=== PATIENT | female | born 1945 | race Two or more races ===

== ENCOUNTER 2019-08-19 12:10 | Inpatient (IN) | payer MEDICAID, OTHER ==
[~2019-08-19] VITALS: Ht 177.8 cm; Wt 89.9 kg
[2019-08-19] MEDS ORDERED: SODIUM CHLORIDE 0.9% 500 ML IVB ONE (12:16)
[2019-08-19 13:00] LABS: Urine Bacteria MANY /hpf (None Seen); Urine Blood 2+ /uL (Negative); Urine Mucus FEW (None Seen); Urine Specific Gravity 1.016 (1.001-1.035); Urine Sperm PRESENT /hpf (None Seen); Urine WBC 2 /hpf (0 - 5)
[2019-08-19 13:01] LABS: Potassium 4.2 mmol/L (3.5-5.1)
[2019-08-19 13:21] LABS: Albumin 2.1 g/dL (3.4-5.0); BUN/Creatinine Ratio 29.2; Bilirubin, Total 2.1 mg/dL (0.2-1.0); Calcium 8.7 mg/dL (8.5-10.1); Magnesium 2.1 mg/dL (1.6-2.6); Total Protein 7.9 g/dL (6.4-8.2)
[2019-08-19 13:26] LABS: Hematocrit 33.9 % (36.0-46.0); Hemoglobin 10.9 g/dL (12.2-16.2); Mean Corpuscular Hemoglobin 29.7 pg (28.0-32.0); Mean Corpuscular Hgb Conc. 32.1 g/dL (32.0-36.0); Mean Corpuscular Volume 92.8 fL (80.0-100.0); Platelet Count (auto) 270 10^3/uL (140-450); Red Blood Cells 3.65 10^6/uL (4.0-5.20); Red Cell Distribution Width 16.2 % (11.8-14.3); White Blood Cell 4.3 10^3/uL (4.4-10.8)
[2019-08-19 13:29] LABS: Basophils % (manual) 0 (0.0-2.0); Blast Cells 0; Eosinophils % (manual) 0 (0-7); Promyelocytes % 0; Reactive Lymphocytes 0
[2019-08-19] MEDS ORDERED: MORPHINE SULFATE 4 MG/ML SYR/VIAL IV PRN (14:00)
[2019-08-19] MEDS ORDERED: ONDANSETRON HCL 4 MG/2 ML VIAL IV PRN (14:00)
[2019-08-19] MEDS ORDERED: ALUM & MAG HYDROX-SIMETH LIQ(MAALOX) 30 ML PO PRN (14:00)
[2019-08-19] MEDS ORDERED: NITROGLYCERIN 0.4 MG SL TAB SL PRN (14:00)
[2019-08-19] MEDS ORDERED: SODIUM CHLORIDE 0.9% 1,000 ML IV SCH (14:00)
[2019-08-19] MEDS ORDERED: MORPHINE SULF INJ 2 MG/ML SYRINGE 1ML IV PRN (14:00)
[2019-08-19 14:02] LABS: Band Neutrophils % (manual) 25; Lymphocytes % (manual) 5 (10.0-50.0); Metamyelocytes % 3; Monocytes % (manual) 11 (0-12); Myelocytes % 1
[2019-08-19] MEDS ORDERED: LACTATED RINGER S IV ONE (14:15)
[2019-08-19 14:25] LABS: Cholesterol 104 mg/dL (< 200)
[2019-08-19 14:27] LABS: HDL Cholesterol 60 mg/dL (40-59); LDL Cholesterol 23 mg/dL (< 100); Triglycerides 128 mg/dL (< 150)
[2019-08-19] MEDS ORDERED: DEXTROSE (50%) 50ML SYRG IV PRN (14:45)
[2019-08-19 16:26] VITALS: BP 121/69
[2019-08-19] MEDS: InsuLIN REG 1unit/0.01ml Soln (100units/ml) SC SCH ×2 (17:00→22:00)
[2019-08-19] MEDS: ACCU-CHEK COMFORT CURVE STRIP VI SCH ×2 (17:00→23:16)
[2019-08-19] MEDS ORDERED: TRAM50TA2 PO (17:05)
[2019-08-19] MEDS ORDERED: ATOR20TA50 PO (17:05)
[2019-08-19] MEDS ORDERED: DEXA4TAB PO (17:05)
[2019-08-19] MEDS ORDERED: HYDR50TA15 PO (17:05)
[2019-08-19] MEDS ORDERED: METO-158 PO (17:05)
[2019-08-19] MEDS ORDERED: ASPI-231 PO (17:05)
[2019-08-19] MEDS ORDERED: AMLO5TAB15 PO (17:05)
[2019-08-19] MEDS: cefTRIAXone 1GM/50ML D5W 50 ML IV SCH (18:30)
[2019-08-19] MEDS: SODIUM CHLORIDE 0.9% 1,000 ML IV SCH (19:00)
[2019-08-19] MEDS ORDERED: METOPROLOL TARTRATE 1MG/1ML-5ML VIAL IV ONE (19:00)
[2019-08-19] MEDS: LORazepam 0.5 MG TAB PO PRN (20:01)
[2019-08-19] MEDS: METOPROLOL TARTRATE 1MG/1ML-5ML VIAL IV PRN (21:52)
[2019-08-19 21:58] VITALS: BP 113/70
[2019-08-19 23:20] VITALS: BP 92/58
[2019-08-20] VITALS (9 sets, daily range): BP systolic 85–122; BP diastolic 48–75
[2019-08-20 05:34] LABS: Basophils # (auto) 0 10 ^3/uL (0-0.2); Basophils % (auto) 0.5 % (0.0-2.0); Eosinophils # (auto) 0 10 ^3/uL (0-0.8); Eosinophils % (auto) 0.3 % (0.0-7.0); Hematocrit 36.6 % (36.0-46.0); Lymphocytes # (auto) 0.1 10 ^3/uL (0.4-5.4); Lymphocytes % (auto) 3.1 % (10.0-50.0); Mean Corpuscular Hemoglobin 30.2 pg (28.0-32.0); Mean Corpuscular Hgb Conc. 32.9 g/dL (32.0-36.0); Monocytes # (auto) 0.1 10 ^3/uL (0-1.3); Monocytes % (auto) 3.8 % (0.0-12.0); Neutrophils # (auto) 3.2 10 ^3/uL (1.6-8.6); Neutrophils % (auto) 92.3 % (37.0-80.0); Nucleated Red Blood Cells % 0.3 %; Platelet Count (auto) 215 10^3/uL (140-450); Red Blood Cells 3.98 10^6/uL (4.0-5.20); Red Cell Distribution Width 16.4 % (11.8-14.3); White Blood Cell 3.5 10^3/uL (4.4-10.8)
[2019-08-20] MEDS: SODIUM CHLORIDE 0.9% 1,000 ML IV SCH ×4 (05:50→20:46)
[2019-08-20 05:52] LABS: Albumin 1.3 g/dL (3.4-5.0); INR 1.66 (0.9-1.15); Partial Thromboplastin Time 47.3 sec (23.64-32.05); Potassium 3.9 mmol/L (3.5-5.1)
[2019-08-20 05:56] LABS: BUN/Creatinine Ratio 42.4; Bilirubin, Total 2.6 mg/dL (0.2-1.0); Phosphorus 3.1 mg/dL (2.5-4.90); Total Protein 6.2 g/dL (6.4-8.2)
[2019-08-20] MEDS: LORazepam 0.5 MG TAB PO PRN (06:14)
[2019-08-20] MEDS: ACCU-CHEK COMFORT CURVE STRIP VI SCH ×4 (06:20→21:20)
[2019-08-20] MEDS: InsuLIN REG 1unit/0.01ml Soln (100units/ml) SC SCH ×4 (06:20→21:31)
[2019-08-20] MEDS: DOCUSATE SOD 100 MG CAP PO PRN (06:36)
[2019-08-20] MEDS: HYDROcodone-ACET 5/325MG TAB PO PRN ×2 (06:37→20:04)
[2019-08-20] MEDS: cefTRIAXone 1GM/50ML D5W 50 ML IV SCH (08:47)
[2019-08-20] MEDS: ENOXAPARIN SOD 40 MG/0.4 ML SYRINGE SC SCH (10:26)
[2019-08-20] MEDS: METOPROLOL TARTRATE 1MG/1ML-5ML VIAL IV PRN (10:38)
[2019-08-20] MEDS ORDERED: ALBUMIN 5% 500 ML IV ONE (11:00)
[2019-08-20] MEDS ORDERED: SODIUM CHLORIDE 0.9% 500 ML IV ONE (17:00)
[2019-08-20] MEDS: DexAMETHasone SOD PHOS 4 MG/1ML SDV INJ IV SCH (21:16)
[2019-08-20] MEDS: MORPHINE SULF INJ 2 MG/ML SYRINGE 1ML IV PRN (22:35)
[2019-08-21] MEDS: SODIUM CHLORIDE 0.9% 1,000 ML IV SCH ×4 (02:36→23:01)
[2019-08-21 05:02] VITALS: BP 113/62
[2019-08-21] MEDS: DexAMETHasone SOD PHOS 4 MG/1ML SDV INJ IV SCH ×3 (05:21→22:48)
[2019-08-21] MEDS: HYDROcodone-ACET 5/325MG TAB PO PRN ×4 (05:54→22:49)
[2019-08-21] MEDS: LORazepam 0.5 MG TAB PO PRN (06:01)
[2019-08-21] MEDS ORDERED: METOPROLOL TARTRATE 25 MG TAB PO PRN (06:15)
[2019-08-21] MEDS: ACCU-CHEK COMFORT CURVE STRIP VI SCH ×4 (06:28→22:49)
[2019-08-21] MEDS: InsuLIN REG 1unit/0.01ml Soln (100units/ml) SC SCH ×3 (06:29→22:50)
[2019-08-21 06:58] LABS: Albumin 1.2 g/dL (3.4-5.0); Calcium 8.3 mg/dL (8.5-10.1); Hematocrit 31.4 % (36.0-46.0); Hemoglobin 10.3 g/dL (12.2-16.2); Mean Corpuscular Hemoglobin 30.3 pg (28.0-32.0); Mean Corpuscular Hgb Conc. 32.6 g/dL (32.0-36.0); Mean Corpuscular Volume 92.9 fL (80.0-100.0); Platelet Count (auto) 188 10^3/uL (140-450); Potassium 3.6 mmol/L (3.5-5.1); Red Blood Cells 3.39 10^6/uL (4.0-5.20); Red Cell Distribution Width 16.7 % (11.8-14.3)
[2019-08-21 07:04] LABS: Bilirubin, Total 2.4 mg/dL (0.2-1.0); Total Protein 5.7 g/dL (6.4-8.2)
[2019-08-21 07:05] LABS: Basophils % (manual) 0 (0.0-2.0); Blast Cells 0; Eosinophils % (manual) 0 (0-7); Myelocytes % 0; Promyelocytes % 0
[2019-08-21 07:29] LABS: Band Neutrophils % (manual) 5; Lymphocytes % (manual) 3 (10.0-50.0); Metamyelocytes % 3; Monocytes % (manual) 2 (0-12); Reactive Lymphocytes 1
[2019-08-21 08:00] VITALS: BP 96/64
[2019-08-21 09:00] VITALS: BP 104/43
[2019-08-21] MEDS: ENOXAPARIN SOD 40 MG/0.4 ML SYRINGE SC SCH (10:00)
[2019-08-21] MEDS: cefTRIAXone 1GM/50ML D5W 50 ML IV SCH (10:01)
[2019-08-21] MEDS ORDERED: AMIODARONE HCL 200 MG TAB PO SCH (12:44)
[2019-08-21] MEDS ORDERED: DIGOXIN (250MCG/ML) 2 ML AMPULE IV ONE ×2 (12:45→15:15)
[2019-08-21 13:00] VITALS: BP 96/67
[2019-08-21] MEDS ORDERED: POTASSIUM CHL 20 Meq TABLET PO ONE (13:00)
[2019-08-21] MEDS ORDERED: DEXTROSE (50%) 50ML SYRG IV PRN (13:00)
[2019-08-21] MEDS: AMIODARONE HCL 200 MG TAB PO SCH ×2 (13:49→22:48)
[2019-08-21 17:00] VITALS: BP 115/70
[2019-08-21 22:24] VITALS: BP 104/59
[2019-08-22] MEDS: HYDROcodone-ACET 5/325MG TAB PO PRN ×3 (05:02→16:48)
[2019-08-22 05:30] VITALS: BP 136/75
[2019-08-22] MEDS: DexAMETHasone SOD PHOS 4 MG/1ML SDV INJ IV SCH ×3 (05:55→22:26)
[2019-08-22 06:36] LABS: Basophils % (manual) 0 (0.0-2.0); Blast Cells 0; Eosinophils % (manual) 0 (0-7); Hematocrit 31.9 % (36.0-46.0); Hemoglobin 10.4 g/dL (12.2-16.2); Mean Corpuscular Hemoglobin 30.3 pg (28.0-32.0); Mean Corpuscular Hgb Conc. 32.6 g/dL (32.0-36.0); Metamyelocytes % 0; Monocytes % (manual) 0 (0-12); Myelocytes % 0; Platelet Count (auto) 185 10^3/uL (140-450); Promyelocytes % 0; Reactive Lymphocytes 0; Red Blood Cells 3.43 10^6/uL (4.0-5.20)
[2019-08-22] MEDS: InsuLIN REG 1unit/0.01ml Soln (100units/ml) SC SCH ×4 (06:38→22:27)
[2019-08-22] MEDS: ACCU-CHEK COMFORT CURVE STRIP VI SCH ×4 (06:38→22:26)
[2019-08-22 06:51] LABS: BUN/Creatinine Ratio 65.4
[2019-08-22 07:14] LABS: Band Neutrophils % (manual) 5; Lymphocytes % (manual) 1 (10.0-50.0)
[2019-08-22 08:00] VITALS: BP 126/74
[2019-08-22 09:00] VITALS: BP 126/74
[2019-08-22 10:11] LABS: Immunoglobulin G, Serum 168 mg/dL (586-1602)
[2019-08-22] MEDS: cefTRIAXone 1GM/50ML D5W 50 ML IV SCH (10:22)
[2019-08-22] MEDS: AMIODARONE HCL 200 MG TAB PO SCH ×2 (10:22→22:26)
[2019-08-22] MEDS: ENOXAPARIN SOD 40 MG/0.4 ML SYRINGE SC SCH (10:23)
[2019-08-22] MEDS: SODIUM CHLORIDE 0.9% 1,000 ML IV SCH ×2 (12:03→13:00)
[2019-08-22 13:00] VITALS: BP 126/71
[2019-08-22 17:00] VITALS: BP 144/76
[2019-08-22] MEDS: MORPHINE SULF INJ 2 MG/ML SYRINGE 1ML IV PRN (20:01)
[2019-08-22 21:57] VITALS: BP 134/76
[2019-08-23] MEDS: MORPHINE SULF INJ 2 MG/ML SYRINGE 1ML IV PRN ×3 (01:18→23:55)
[2019-08-23 01:59] VITALS: BP 140/80
[2019-08-23] MEDS: LORazepam 0.5 MG TAB PO PRN (02:49)
[2019-08-23] MEDS: SODIUM CHLORIDE 0.9% 1,000 ML IV SCH ×2 (02:57→14:53)
[2019-08-23 05:04] VITALS: BP 142/82
[2019-08-23] MEDS: DexAMETHasone SOD PHOS 4 MG/1ML SDV INJ IV SCH ×3 (05:41→22:00)
[2019-08-23 06:35] LABS: Calcium 9.1 mg/dL (8.5-10.1); Magnesium 1.9 mg/dL (1.6-2.6); Potassium 4.6 mmol/L (3.5-5.1)
[2019-08-23 06:40] LABS: BUN/Creatinine Ratio 60.7
[2019-08-23] MEDS: ACCU-CHEK COMFORT CURVE STRIP VI SCH ×4 (06:44→22:01)
[2019-08-23] MEDS: InsuLIN REG 1unit/0.01ml Soln (100units/ml) SC SCH ×4 (06:49→22:15)
[2019-08-23 08:14] LABS: Folate (Folic Acid) 4.33 ng/mL (5.38-24)
[2019-08-23 09:00] VITALS: BP 138/67
[2019-08-23] MEDS: AMIODARONE HCL 200 MG TAB PO SCH ×2 (09:20→22:00)
[2019-08-23] MEDS: cefTRIAXone 1GM/50ML D5W 50 ML IV SCH (09:20)
[2019-08-23] MEDS: ENOXAPARIN SOD 40 MG/0.4 ML SYRINGE SC SCH (09:21)
[2019-08-23] MEDS: ACYCLOVIR 400 MG TAB PO SCH ×4 (09:40→22:00)
[2019-08-23] MEDS: MORPHINE SULF 30 mg ER tab PO SCH ×2 (09:40→22:00)
[2019-08-23] MEDS ORDERED: MAGNESIUM SULFATE 1GM/100ML 100 ML IV ONE (12:30)
[2019-08-23 13:00] VITALS: BP 128/60
[2019-08-23 17:00] VITALS: BP 121/64
[2019-08-23] MEDS: HYDROcodone-ACET 7.5/325MG TAB PO PRN (20:06)
[2019-08-23 22:00] VITALS: BP 139/80
[2019-08-24 04:54] VITALS: BP 132/66
[2019-08-24] MEDS: DexAMETHasone SOD PHOS 4 MG/1ML SDV INJ IV SCH ×3 (05:14→21:16)
[2019-08-24] MEDS: ACCU-CHEK COMFORT CURVE STRIP VI SCH ×4 (05:15→21:58)
[2019-08-24] MEDS: ACYCLOVIR 400 MG TAB PO SCH ×5 (05:15→22:07)
[2019-08-24] MEDS: MORPHINE SULF INJ 2 MG/ML SYRINGE 1ML IV PRN ×2 (05:45→20:18)
[2019-08-24] MEDS: SODIUM CHLORIDE 0.9% 1,000 ML IV SCH (06:14)
[2019-08-24] MEDS: InsuLIN REG 1unit/0.01ml Soln (100units/ml) SC SCH ×4 (06:15→21:58)
[2019-08-24 08:00] VITALS: BP 136/90
[2019-08-24 09:00] VITALS: BP 136/90
[2019-08-24] MEDS: cefTRIAXone 1GM/50ML D5W 50 ML IV SCH (10:19)
[2019-08-24] MEDS: AMIODARONE HCL 200 MG TAB PO SCH ×2 (10:20→21:18)
[2019-08-24] MEDS: MORPHINE SULF 30 mg ER tab PO SCH ×2 (10:20→21:17)
[2019-08-24] MEDS: DOCUSATE SOD 100 MG CAP PO PRN (10:20)
[2019-08-24] MEDS: ENOXAPARIN SOD 40 MG/0.4 ML SYRINGE SC SCH (10:20)
[2019-08-24] MEDS: LORazepam 0.5 MG TAB PO PRN (11:19)
[2019-08-24] MEDS: FOLIC ACID 1 MG in D5W 5% 50 ML IV SCH (12:43)
[2019-08-24 13:00] VITALS: BP 144/89
[2019-08-24] MEDS: HYDROcodone-ACET 7.5/325MG TAB PO PRN (15:26)
[2019-08-24 17:00] VITALS: BP 141/81
[2019-08-24 22:00] VITALS: BP 132/81
[2019-08-25] MEDS: HYDROcodone-ACET 7.5/325MG TAB PO PRN ×2 (00:23→22:32)
[2019-08-25 05:00] VITALS: BP 142/83
[2019-08-25] MEDS: DexAMETHasone SOD PHOS 4 MG/1ML SDV INJ IV SCH (05:51)
[2019-08-25] MEDS: ACYCLOVIR 400 MG TAB PO SCH ×5 (05:52→22:31)
[2019-08-25] MEDS: InsuLIN REG 1unit/0.01ml Soln (100units/ml) SC SCH ×4 (06:31→22:30)
[2019-08-25] MEDS: ACCU-CHEK COMFORT CURVE STRIP VI SCH ×4 (06:31→23:46)
[2019-08-25 09:00] VITALS: BP_SYST 148; BP_SYST 170; BP_DIAS 73; BP_DIAS 84
[2019-08-25] MEDS: ENOXAPARIN SOD 40 MG/0.4 ML SYRINGE SC SCH (09:06)
[2019-08-25] MEDS: MORPHINE SULF 30 mg ER tab PO SCH ×3 (09:07→15:43)
[2019-08-25] MEDS: AMIODARONE HCL 200 MG TAB PO SCH ×2 (09:07→22:30)
[2019-08-25] MEDS: FOLIC ACID 1 MG in D5W 5% 50 ML IV SCH (10:42)
[2019-08-25] MEDS ORDERED: HYDROcodone-ACET 10/325MG TAB PO PRN (12:45)
[2019-08-25] MEDS ORDERED: traMADol HCL 50 MG TAB PO PRN (12:45)
[2019-08-25 13:00] VITALS: BP 154/87
[2019-08-25 17:00] VITALS: BP 155/81
[2019-08-25 22:00] VITALS: BP 160/93
[2019-08-25] MEDS: METOPROLOL TARTRATE 25 MG TAB PO SCH (22:31)
[2019-08-25] MEDS: DexAMETHasone 4 MG TAB PO SCH (22:31)
[2019-08-26 05:00] VITALS: BP 161/90
[2019-08-26] MEDS: MORPHINE SULF 30 mg ER tab PO SCH (05:11)
[2019-08-26] MEDS: ACYCLOVIR 400 MG TAB PO SCH ×2 (06:24→10:44)
[2019-08-26] MEDS: InsuLIN REG 1unit/0.01ml Soln (100units/ml) SC SCH ×2 (06:24→11:54)
[2019-08-26] MEDS: ACCU-CHEK COMFORT CURVE STRIP VI SCH ×2 (06:25→11:54)
[2019-08-26 07:57] VITALS: BP 130/66
[2019-08-26] MEDS: HYDROcodone-ACET 7.5/325MG TAB PO PRN (08:46)
[2019-08-26 09:00] VITALS: BP 130/66
[2019-08-26] MEDS ORDERED: FOLIC ACID 1 MG TAB PO SCH (10:00)
[2019-08-26] MEDS ORDERED: amLODIPine BESYLATE 5 MG TAB PO ONE (10:15)
[2019-08-26] MEDS: DexAMETHasone 4 MG TAB PO SCH ×2 (10:42→10:44)
[2019-08-26] MEDS: METOPROLOL TARTRATE 25 MG TAB PO SCH ×2 (10:42→10:45)
[2019-08-26] MEDS: ENOXAPARIN SOD 40 MG/0.4 ML SYRINGE SC SCH (10:44)
[2019-08-26] MEDS: AMIODARONE HCL 200 MG TAB PO SCH (10:45)
[2019-08-26] MEDS ORDERED: DEX4T PO (12:39)
[2019-08-26] MEDS ORDERED: DOCU100C8 PO (12:39)
[2019-08-26] MEDS ORDERED: ACYC-161 PO (12:39)
[2019-08-26] MEDS ORDERED: FOLI1TAB6 PO (12:39)
[2019-08-26 13:00] VITALS: BP 124/80
[2019-08-26 13:07] VITALS: BP 130/66
[2019-08-27] MEDS ORDERED: amLODIPine BESYLATE 5 MG TAB PO SCH (10:00)
== END 2019-08-26 15:57 | disposition home or self-care (01) | DRG 40 ==
LOC: EDBD 12:10 → ER 12:10 → TELE 12:11 → TELE-CENTR 15:14 → TELE-WESTW 08-25 12:32
PROVIDERS: ADMIT Hospitalist; ATTEND Internal Medicine
DX: G95.20 Unspecified cord compression (principal); E43 Unspecified severe protein-calorie malnutrition; G93.41 Metabolic encephalopathy; N17.9 Acute kidney failure, unspecified; C90.00 Multiple myeloma not having achieved remission; D89.2 Hypergammaglobulinemia, unspecified; C41.2 Malignant neoplasm of vertebral column; R33.9 Retention of urine, unspecified; E11.22 Type 2 diabetes mellitus with diabetic chronic kidney disease; I95.9 Hypotension, unspecified; I47.1 Supraventricular tachycardia; D63.8 Anemia in other chronic diseases classified elsewhere; N13.9 Obstructive and reflux uropathy, unspecified; E86.0 Dehydration; N18.9 Chronic kidney disease, unspecified; E78.5 Hyperlipidemia, unspecified; F17.200 Nicotine dependence, unspecified, uncomplicated; N31.2 Flaccid neuropathic bladder, not elsewhere classified; I13.10 Hypertensive heart and chronic kidney disease without heart failure, with stage 1 through stage 4 chronic kidney disease, or unspecified chronic kidney disease; Z88.8 Allergy status to other drugs, medicaments and biological substances; Z82.49 Family history of ischemic heart disease and other diseases of the circulatory system; Z79.899 Other long term (current) drug therapy; Z79.82 Long term (current) use of aspirin; Z90.710 Acquired absence of both cervix and uterus; B02.9 Zoster without complications; Z68.26 Body mass index [BMI] 26.0-26.9, adult
CPT/HCPCS: 36415; 70551; 72192; 74176; 80048; 80053; 80061; 81001; 82607; 82746; 82784; 82962; 83036; 83690; 83735; 83883; 84100; 84155; 84165; 84443; 85007; 85025; 85027; 85610; 85730; 86334; 86335; 87086; 92610; 93005; 93306; 93970; 97110; 97163; 97530; G0378; J0696; J1100; J1815; J7060

== ENCOUNTER → 2019-08-27 | Emergency (ER) | payer MEDICAID, OTHER ==
[~2019-08-27] VITALS: Ht 160 cm; Wt 72.6 kg
[~2019-08-27] MED LIST: ACYC-161 PO; AMLO5TAB15 PO; ASPI-231 PO; DEX4T PO; DEXA4TAB PO; DOCU100C8 PO; FOLI1TAB6 PO; HYDR50TA15 PO; METO-158 PO; TRAM50TA2 PO
[2019-08-27 21:23] LABS: Basophils # (auto) 0 10 ^3/uL (0-0.2); Basophils % (auto) 0.5 % (0.0-2.0); Eosinophils # (auto) 0 10 ^3/uL (0-0.8); Hematocrit 32.8 % (36.0-46.0); Hemoglobin 10.8 g/dL (12.2-16.2); Lymphocytes # (auto) 0.1 10 ^3/uL (0.4-5.4); Lymphocytes % (auto) 1.3 % (10.0-50.0); Mean Corpuscular Hemoglobin 30.5 pg (28.0-32.0); Mean Corpuscular Hgb Conc. 32.9 g/dL (32.0-36.0); Mean Corpuscular Volume 92.8 fL (80.0-100.0); Monocytes # (auto) 0 10 ^3/uL (0-1.3); Monocytes % (auto) 0.6 % (0.0-12.0); Neutrophils # (auto) 8.3 10 ^3/uL (1.6-8.6); Neutrophils % (auto) 97.6 % (37.0-80.0); Nucleated Red Blood Cells % 0.3 %; Platelet Count (auto) 178 10^3/uL (140-450); Red Blood Cells 3.53 10^6/uL (4.0-5.20); Red Cell Distribution Width 17.2 % (11.8-14.3); White Blood Cell 8.5 10^3/uL (4.4-10.8)
[2019-08-27 21:41] LABS: Alanine Aminotransferase 29 U/L (13-56); Albumin 1.4 g/dL (3.4-5.0); Anion Gap 6 (5-15); Aspartate Aminotransferase 14 U/L (15-37); Blood Urea Nitrogen 22 mg/dL (7-18); Calcium 7.7 mg/dL (8.5-10.1); Carbon Dioxide 25 mmol/L (21-32); Chloride 105 mmol/L (98-107); GFR African American 156 mL/min; GFR Non-African American 129 mL/min; Glucose 248 mg/dL (74-106); Magnesium 1.7 mg/dL (1.6-2.6); Potassium 4.2 mmol/L (3.5-5.1); Sodium 136 mmol/L (136-145)
[2019-08-27 21:42] LABS: INR 1.13 (0.9-1.15); Partial Thromboplastin Time 33.3 sec (23.64-32.05)
[2019-08-27 21:46] LABS: Alkaline Phosphatase 236 U/L (45-117); Bilirubin, Total 0.9 mg/dL (0.2-1.0); Total Protein 6.2 g/dL (6.4-8.2)
[2019-08-27 22:06] VITALS: BP 125/77
== END | disposition home or self-care (01) ==
LOC: EDBD 20:04 → EDUNIT# 20:07 → ER 20:07
DX: R33.9 Retention of urine, unspecified (principal); M79.89 Other specified soft tissue disorders
CPT/HCPCS: 36415; 71045; 80053; 83735; 83880; 84484; 85025; 85610; 85730

== ENCOUNTER 2019-09-14 19:15 | Inpatient (IN) | payer MEDICAID ==
[~2019-09-14] VITALS: Ht 175.3 cm; Wt 81.3 kg
[2019-09-14 20:34] LABS: Basophils # (auto) 0 10 ^3/uL (0-0.2); Eosinophils # (auto) 0 10 ^3/uL (0-0.8); Hematocrit 32.1 % (36.0-46.0); Hemoglobin 10.2 g/dL (12.2-16.2); Lymphocytes # (auto) 0.1 10 ^3/uL (0.4-5.4); Lymphocytes % (auto) 1.9 % (10.0-50.0); Mean Corpuscular Hemoglobin 31.1 pg (28.0-32.0); Mean Corpuscular Hgb Conc. 31.7 g/dL (32.0-36.0); Mean Corpuscular Volume 98.4 fL (80.0-100.0); Monocytes # (auto) 0.1 10 ^3/uL (0-1.3); Monocytes % (auto) 1.2 % (0.0-12.0); Neutrophils % (auto) 96.9 % (37.0-80.0); Nucleated Red Blood Cells % 2.1 %; Platelet Count (auto) 79 10^3/uL (140-450); Red Blood Cells 3.26 10^6/uL (4.0-5.20); White Blood Cell 5.1 10^3/uL (4.4-10.8)
[2019-09-14 20:49] LABS: Red Cell Distribution Width 20.1 % (11.8-14.3)
[2019-09-14 20:52] LABS: Albumin 1.9 g/dL (3.4-5.0); BUN/Creatinine Ratio 68.1; Calcium 8.3 mg/dL (8.5-10.1); Potassium 4.3 mmol/L (3.5-5.1)
[2019-09-14 20:55] LABS: Bilirubin, Total 0.6 mg/dL (0.2-1.0); Total Protein 5.5 g/dL (6.4-8.2)
[2019-09-14 20:57] LABS: Lactic Acid w/Reflex 2.6 mmol/L (0.4-2.0)
[2019-09-14] MEDS ORDERED: InsuLIN REG 1unit/0.01ml Soln (100units/ml) IV ONE (21:00)
[2019-09-14] MEDS ORDERED: SODIUM CHLORIDE 0.9% 1,000 ML IV ONE (21:00)
[2019-09-14 21:27] LABS: INR 1.24 (0.9-1.15); Partial Thromboplastin Time 27.3 sec (23.64-32.05)
[2019-09-14 22:28] LABS: Urine Bacteria MANY /hpf (None Seen); Urine Blood 1+ /uL (Negative); Urine Mucus FEW (None Seen); Urine Specific Gravity 1.019 (1.001-1.035); Urine WBC 459 /hpf (0 - 5); Urine WBC Clumps PRESENT /hpf (None Seen)
[2019-09-14] MEDS ORDERED: cefTRIAXone 1GM/50ML D5W 50 ML IV ONE (23:30)
[2019-09-15] MEDS ORDERED: TEMAZEPAM 15 MG CAP PO PRN (02:30)
[2019-09-15] MEDS ORDERED: DOCUSATE SOD 100 MG CAP PO PRN (02:30)
[2019-09-15] MEDS ORDERED: DEXTROSE (50%) 50ML SYRG IV PRN (02:30)
[2019-09-15] MEDS ORDERED: ACETAMINOPHEN 325 MG TAB PO PRN (02:30)
[2019-09-15] MEDS ORDERED: IOHEXOL 350 MG/ML 100ML IJ ONE ×2 (02:33→02:57)
[2019-09-15] MEDS ORDERED: MORPHINE SULF INJ 2 MG/ML SYRINGE 1ML IV PRN (03:15)
[2019-09-15] MEDS ORDERED: NITROGLYCERIN 0.4 MG SL TAB SL PRN (03:15)
[2019-09-15 05:28] VITALS: BP 107/69
[2019-09-15] MEDS: SOD CHL 0.45% 1,000 ML IV SCH ×2 (06:26→16:29)
[2019-09-15] MEDS: ACCU-CHEK COMFORT CURVE STRIP VI SCH ×4 (06:30→23:20)
[2019-09-15] MEDS: InsuLIN REG 1unit/0.01ml Soln (100units/ml) SC SCH ×4 (06:33→23:20)
[2019-09-15] MEDS ORDERED: GABA100C9 PO (07:12)
[2019-09-15] MEDS ORDERED: HYDR-531 PO (08:05)
[2019-09-15] MEDS ORDERED: MORP30TA PO (08:06)
[2019-09-15] MEDS: cefTRIAXone 1GM/50ML D5W 50 ML IV SCH (08:53)
[2019-09-15 09:04] VITALS: BP 108/69
[2019-09-15] MEDS: FAMOTIDINE 20 MG TAB PO SCH ×2 (10:00→10:28)
[2019-09-15] MEDS: ASPirin 81 mg TAB PO SCH ×2 (10:00→10:26)
[2019-09-15] MEDS: METOPROLOL TARTRATE 25 MG TAB PO SCH ×2 (10:00→10:27)
[2019-09-15] MEDS: hydrALAZINE HCL 25 MG TAB PO SCH ×2 (10:00→10:27)
[2019-09-15] MEDS: ENOXAPARIN SOD 40 MG/0.4 ML SYRINGE SC SCH (10:28)
[2019-09-15 13:00] VITALS: BP 104/66
[2019-09-15] MEDS ORDERED: hydrALAZINE HCL 20 MG/ML VL IV PRN (14:30)
[2019-09-15] MEDS ORDERED: metroNIDAZOLE 500MG/100ML 100 ML IV ONE (14:45)
[2019-09-15 15:35] LABS: Platelet Count (auto) 59 10^3/uL (140-450)
[2019-09-15 15:36] LABS: Hematocrit 31.1 % (36.0-46.0); Hemoglobin 9.8 g/dL (12.2-16.2); Mean Corpuscular Hemoglobin 30.8 pg (28.0-32.0); Mean Corpuscular Hgb Conc. 31.4 g/dL (32.0-36.0); Mean Corpuscular Volume 98.1 fL (80.0-100.0); Red Blood Cells 3.17 10^6/uL (4.0-5.20); Red Cell Distribution Width 19.6 % (11.8-14.3)
[2019-09-15 15:41] LABS: Basophils % (manual) 0 (0.0-2.0); Blast Cells 0; Eosinophils % (manual) 0 (0-7); Myelocytes % 0; Promyelocytes % 0; Reactive Lymphocytes 0
[2019-09-15 16:02] LABS: Band Neutrophils % (manual) 7; Lymphocytes % (manual) 3 (10.0-50.0); Metamyelocytes % 1; Monocytes % (manual) 1 (0-12)
[2019-09-15 16:20] VITALS: BP 109/68
[2019-09-15 21:59] VITALS: BP 122/82
[2019-09-15] MEDS ORDERED: DexAMETHasone SOD PHOS 4 MG/1ML SDV INJ IV SCH (22:00)
[2019-09-15] MEDS: metroNIDAZOLE 500MG/100ML 100 ML IV SCH (22:06)
[2019-09-15] MEDS: MORPHINE SULF INJ 2 MG/ML SYRINGE 1ML IV PRN (23:23)
[2019-09-16 05:02] VITALS: BP 120/73
[2019-09-16] MEDS: SOD CHL 0.45% 1,000 ML IV SCH (05:15)
[2019-09-16] MEDS: metroNIDAZOLE 500MG/100ML 100 ML IV SCH ×3 (05:16→21:55)
[2019-09-16] MEDS: ACCU-CHEK COMFORT CURVE STRIP VI SCH ×3 (05:16→17:08)
[2019-09-16] MEDS: InsuLIN REG 1unit/0.01ml Soln (100units/ml) SC SCH ×3 (05:16→17:53)
[2019-09-16 06:31] LABS: Hemoglobin 9.9 g/dL (12.2-16.2)
[2019-09-16 06:33] LABS: Hematocrit 30.8 % (36.0-46.0); Mean Corpuscular Hemoglobin 31.3 pg (28.0-32.0); Mean Corpuscular Hgb Conc. 32.2 g/dL (32.0-36.0); Mean Corpuscular Volume 97.2 fL (80.0-100.0); Platelet Count (auto) 56 10^3/uL (140-450); Red Blood Cells 3.16 10^6/uL (4.0-5.20); Red Cell Distribution Width 19.5 % (11.8-14.3); White Blood Cell 3.8 10^3/uL (4.4-10.8)
[2019-09-16 06:45] LABS: Basophils % (manual) 0 (0.0-2.0); Blast Cells 0; Eosinophils % (manual) 0 (0-7); Promyelocytes % 0; Reactive Lymphocytes 0
[2019-09-16 06:50] LABS: Albumin 1.6 g/dL (3.4-5.0); Calcium 8.1 mg/dL (8.5-10.1); Magnesium 2.4 mg/dL (1.6-2.6); Potassium 3.5 mmol/L (3.5-5.1)
[2019-09-16 06:56] LABS: BUN/Creatinine Ratio 82.8; Bilirubin, Total 0.7 mg/dL (0.2-1.0); Total Protein 4.9 g/dL (6.4-8.2)
[2019-09-16 07:04] LABS: Lactic Acid w/Reflex 2.6 mmol/L (0.4-2.0)
[2019-09-16 07:29] LABS: Band Neutrophils % (manual) 14; Lymphocytes % (manual) 1 (10.0-50.0); Metamyelocytes % 1; Monocytes % (manual) 4 (0-12); Myelocytes % 1
[2019-09-16 09:00] VITALS: BP 118/66
[2019-09-16] MEDS: cefTRIAXone 1GM/50ML D5W 50 ML IV SCH (09:22)
[2019-09-16] MEDS ORDERED: ASPirin 81 mg TAB PO SCH (10:00)
[2019-09-16] MEDS: PANTOPRAZOLE 40 MG/10 ML VIAL INJ IV SCH (10:38)
[2019-09-16] MEDS: DexAMETHasone SOD PHOS 4 MG/1ML SDV INJ IV SCH ×2 (10:38→21:54)
[2019-09-16] MEDS: ENOXAPARIN SOD 40 MG/0.4 ML SYRINGE SC SCH (10:39)
[2019-09-16] MEDS ORDERED: METOPROLOL TARTRATE 1MG/1ML-5ML VIAL IV PRN (11:15)
[2019-09-16 13:00] VITALS: BP 127/80
[2019-09-16] MEDS: MORPHINE SULF INJ 2 MG/ML SYRINGE 1ML IV PRN (13:39)
[2019-09-16 17:00] VITALS: BP 132/82
[2019-09-16] MEDS: POTASSIUM CHLORIDE 20 MEQ in D5W 5% 1,000 ML IV SCH (17:08)
[2019-09-17] MEDS: ACCU-CHEK COMFORT CURVE STRIP VI SCH ×4 (00:25→17:16)
[2019-09-17] MEDS: InsuLIN REG 1unit/0.01ml Soln (100units/ml) SC SCH ×4 (00:29→17:28)
[2019-09-17] MEDS: POTASSIUM CHLORIDE 20 MEQ in D5W 5% 1,000 ML IV SCH ×2 (04:13→17:16)
[2019-09-17 06:10] VITALS: BP 131/80
[2019-09-17] MEDS: metroNIDAZOLE 500MG/100ML 100 ML IV SCH ×3 (06:11→21:38)
[2019-09-17 09:00] VITALS: BP 128/71
[2019-09-17] MEDS: cefTRIAXone 1GM/50ML D5W 50 ML IV SCH (09:09)
[2019-09-17] MEDS: ENOXAPARIN SOD 40 MG/0.4 ML SYRINGE SC SCH (10:00)
[2019-09-17] MEDS: PANTOPRAZOLE 40 MG/10 ML VIAL INJ IV SCH (10:51)
[2019-09-17] MEDS: DexAMETHasone SOD PHOS 4 MG/1ML SDV INJ IV SCH ×2 (10:51→21:38)
[2019-09-17] MEDS ORDERED: IOHEXOL 350 MG/ML 100ML IJ ONE (12:45)
[2019-09-17] MEDS ORDERED: LIDOCAINE 2%HCL (LOCAL ANESTH.) INJ 20ML MDV ONE (12:45)
[2019-09-17 13:00] VITALS: BP 119/74
[2019-09-17] MEDS ORDERED: fentaNYL CITRATE 100 MCG/2 ML VL ONE (13:44)
[2019-09-17] MEDS ORDERED: MIDAZOLAM HCL 1MG/1ML-2 ML VIAL ONE (13:44)
[2019-09-17 15:22] LABS: Mean Corpuscular Volume 97.3 fL (80.0-100.0); White Blood Cell 2.8 10^3/uL (4.4-10.8)
[2019-09-17 15:23] LABS: Hematocrit 33.9 % (36.0-46.0); Hemoglobin 10.8 g/dL (12.2-16.2); Mean Corpuscular Hemoglobin 30.9 pg (28.0-32.0); Mean Corpuscular Hgb Conc. 31.8 g/dL (32.0-36.0); Platelet Count (auto) 50 10^3/uL (140-450); Red Blood Cells 3.48 10^6/uL (4.0-5.20); Red Cell Distribution Width 19.4 % (11.8-14.3)
[2019-09-17 15:30] LABS: Basophils % (manual) 0 (0.0-2.0); Blast Cells 0; Eosinophils % (manual) 0 (0-7); Metamyelocytes % 0; Myelocytes % 0; Promyelocytes % 0; Reactive Lymphocytes 0
[2019-09-17 15:33] LABS: BUN/Creatinine Ratio 76.2; Calcium 8.3 mg/dL (8.5-10.1); Potassium 3.4 mmol/L (3.5-5.1)
[2019-09-17 15:34] LABS: INR 1.3 (0.9-1.15); Partial Thromboplastin Time 29.6 sec (23.64-32.05)
[2019-09-17 17:00] VITALS: BP 129/84
[2019-09-17 17:36] LABS: Lymphocytes % (manual) 4 (10.0-50.0); Monocytes % (manual) 1 (0-12)
[2019-09-17 17:38] LABS: Band Neutrophils % (manual) 5
[2019-09-17 22:00] VITALS: BP 131/94
[2019-09-18] MEDS: ACCU-CHEK COMFORT CURVE STRIP VI SCH ×4 (00:18→17:49)
[2019-09-18] MEDS: InsuLIN REG 1unit/0.01ml Soln (100units/ml) SC SCH ×4 (00:21→18:03)
[2019-09-18 05:00] VITALS: BP 142/92
[2019-09-18] MEDS: metroNIDAZOLE 500MG/100ML 100 ML IV SCH ×3 (06:20→22:00)
[2019-09-18] MEDS: POTASSIUM CHLORIDE 20 MEQ in D5W 5% 1,000 ML IV SCH (07:15)
[2019-09-18 07:50] LABS: Red Blood Cells 3.23 10^6/uL (4.0-5.20); White Blood Cell 2.6 10^3/uL (4.4-10.8)
[2019-09-18 07:53] LABS: Hematocrit 31.2 % (36.0-46.0); Mean Corpuscular Hgb Conc. 32.1 g/dL (32.0-36.0); Mean Corpuscular Volume 96.6 fL (80.0-100.0); Platelet Count (auto) 46 10^3/uL (140-450); Red Cell Distribution Width 19.8 % (11.8-14.3)
[2019-09-18 08:07] LABS: BUN/Creatinine Ratio 83.3; Calcium 7.7 mg/dL (8.5-10.1); Potassium 3.5 mmol/L (3.5-5.1)
[2019-09-18 08:12] LABS: Basophils % (manual) 0 (0.0-2.0); Blast Cells 0; Eosinophils % (manual) 0 (0-7); Metamyelocytes % 0; Myelocytes % 0; Promyelocytes % 0; Reactive Lymphocytes 0
[2019-09-18 08:33] LABS: Band Neutrophils % (manual) 10; Lymphocytes % (manual) 4 (10.0-50.0); Monocytes % (manual) 3 (0-12)
[2019-09-18 09:00] VITALS: BP 135/95
[2019-09-18] MEDS: cefTRIAXone 1GM/50ML D5W 50 ML IV SCH (09:00)
[2019-09-18] MEDS: DexAMETHasone SOD PHOS 4 MG/1ML SDV INJ IV SCH ×2 (09:34→22:00)
[2019-09-18] MEDS: PANTOPRAZOLE 40 MG/10 ML VIAL INJ IV SCH (09:34)
[2019-09-18 13:00] VITALS: BP 133/79
[2019-09-18 17:00] VITALS: BP 125/89
[2019-09-18 22:00] VITALS: BP 113/83
[2019-09-18] MEDS: MORPHINE SULF INJ 2 MG/ML SYRINGE 1ML IV PRN (23:04)
[2019-09-19] MEDS: ACCU-CHEK COMFORT CURVE STRIP VI SCH ×5 (00:34→23:44)
[2019-09-19] MEDS: InsuLIN REG 1unit/0.01ml Soln (100units/ml) SC SCH ×5 (00:38→23:48)
[2019-09-19 05:00] VITALS: BP 107/76
[2019-09-19 05:35] LABS: Hematocrit 35.4 % (36.0-46.0); Hemoglobin 11.3 g/dL (12.2-16.2); Mean Corpuscular Hemoglobin 30.8 pg (28.0-32.0); Mean Corpuscular Hgb Conc. 31.8 g/dL (32.0-36.0); Mean Corpuscular Volume 96.7 fL (80.0-100.0); Platelet Count (auto) 38 10^3/uL (140-450); Red Blood Cells 3.66 10^6/uL (4.0-5.20); Red Cell Distribution Width 19.8 % (11.8-14.3); White Blood Cell 3.1 10^3/uL (4.4-10.8)
[2019-09-19 05:49] LABS: Basophils % (manual) 0 (0.0-2.0); Blast Cells 0; Eosinophils % (manual) 0 (0-7); Metamyelocytes % 0; Myelocytes % 0; Promyelocytes % 0; Reactive Lymphocytes 0
[2019-09-19 05:51] LABS: Calcium 7.7 mg/dL (8.5-10.1); Potassium 4.1 mmol/L (3.5-5.1)
[2019-09-19 05:54] LABS: BUN/Creatinine Ratio 58.6
[2019-09-19] MEDS: POTASSIUM CHLORIDE 20 MEQ in D5W 5% 1,000 ML IV SCH ×3 (06:24→21:53)
[2019-09-19] MEDS: metroNIDAZOLE 500MG/100ML 100 ML IV SCH ×3 (06:31→21:53)
[2019-09-19 06:56] LABS: Band Neutrophils % (manual) 4; Lymphocytes % (manual) 9 (10.0-50.0); Monocytes % (manual) 3 (0-12)
[2019-09-19] MEDS: cefTRIAXone 1GM/50ML D5W 50 ML IV SCH (08:53)
[2019-09-19 09:00] VITALS: BP 134/91
[2019-09-19] MEDS: PANTOPRAZOLE 40 MG/10 ML VIAL INJ IV SCH (09:53)
[2019-09-19] MEDS: DexAMETHasone SOD PHOS 4 MG/1ML SDV INJ IV SCH ×2 (09:53→21:53)
[2019-09-19 13:00] VITALS: BP 138/84
[2019-09-19] MEDS: MORPHINE SULF INJ 2 MG/ML SYRINGE 1ML IV PRN (15:57)
[2019-09-19 22:00] VITALS: BP 132/80
[2019-09-20] MEDS: MORPHINE SULF INJ 2 MG/ML SYRINGE 1ML IV PRN (00:17)
[2019-09-20 05:17] VITALS: BP 134/89
[2019-09-20] MEDS: metroNIDAZOLE 500MG/100ML 100 ML IV SCH (06:14)
[2019-09-20] MEDS: InsuLIN REG 1unit/0.01ml Soln (100units/ml) SC SCH ×3 (06:15→18:00)
[2019-09-20] MEDS: ACCU-CHEK COMFORT CURVE STRIP VI SCH ×3 (06:16→18:03)
[2019-09-20 08:00] VITALS: BP 124/94
[2019-09-20 09:00] VITALS: BP 124/94
[2019-09-20 10:09] LABS: Hemoglobin 11.5 g/dL (12.2-16.2)
[2019-09-20 10:10] LABS: Hematocrit 35.7 % (36.0-46.0); Mean Corpuscular Hemoglobin 31.1 pg (28.0-32.0); Mean Corpuscular Hgb Conc. 32.3 g/dL (32.0-36.0); Mean Corpuscular Volume 96.4 fL (80.0-100.0); Platelet Count (auto) 31 10^3/uL (140-450); Red Cell Distribution Width 19.4 % (11.8-14.3); White Blood Cell 4.5 10^3/uL (4.4-10.8)
[2019-09-20 10:25] LABS: Band Neutrophils % (manual) 0; Basophils % (manual) 0 (0.0-2.0); Blast Cells 0; Eosinophils % (manual) 0 (0-7); Myelocytes % 0; Promyelocytes % 0; Reactive Lymphocytes 0
[2019-09-20 10:27] LABS: Calcium 7.8 mg/dL (8.5-10.1); Potassium 4.3 mmol/L (3.5-5.1)
[2019-09-20 10:51] LABS: Lymphocytes % (manual) 5 (10.0-50.0); Metamyelocytes % 1; Monocytes % (manual) 1 (0-12)
[2019-09-20] MEDS: PANTOPRAZOLE 40 MG/10 ML VIAL INJ IV SCH (11:20)
[2019-09-20] MEDS: cefTRIAXone 1GM/50ML D5W 50 ML IV SCH (11:21)
[2019-09-20 13:00] VITALS: BP 113/76
[2019-09-20 17:00] VITALS: BP 114/79
[2019-09-20] MEDS ORDERED: DexAMETHasone 4 MG TAB PO SCH (22:00)
[2019-09-21] VITALS (41 sets, daily range): BP systolic 43–158; BP diastolic 20–85
[2019-09-21] MEDS: ACCU-CHEK COMFORT CURVE STRIP VI SCH ×3 (00:58→11:35)
[2019-09-21] MEDS ORDERED: SODIUM CHLORIDE 0.9% 1,000 ML IV ONE ×3 (01:00→07:45)
[2019-09-21] MEDS: InsuLIN REG 1unit/0.01ml Soln (100units/ml) SC SCH ×5 (05:31→23:35)
[2019-09-21] MEDS ORDERED: METOPROLOL TARTRATE 1MG/1ML-5ML VIAL IV ONE (07:45)
[2019-09-21] MEDS: NOREPINEPHRINE 8 MG/250ML KIT 250 ML IV SCH ×2 (07:57→14:09)
[2019-09-21] MEDS ORDERED: ROCURONIUM 10MG/ML 10ML VIAL IV ONE (08:06)
[2019-09-21] MEDS ORDERED: ETOMIDATE (2MG/ML) 20ML VIAL IV ONE (08:06)
[2019-09-21] MEDS ORDERED: SUCCINYLCHOLINE CHLORIDE 20 MG/ML 10ML VIAL IV ONE (08:07)
[2019-09-21] MEDS ORDERED: NOREPINEPHRINE 8 MG/250ML KIT 250 ML IV ONE (08:09)
[2019-09-21] MEDS ORDERED: MIDAZOLAM DRIP 50 mg/50mL 50 ML IV ONE (08:15)
[2019-09-21] MEDS ORDERED: PHENYLEPHRINE IV 250 ML IV ONE (08:28)
[2019-09-21] MEDS ORDERED: SODIUM CHLORIDE 0.9% 500 ML IV ONE (08:30)
[2019-09-21] MEDS: PHENYLEPHRINE IV 250 ML IV SCH ×5 (08:32→17:27)
[2019-09-21] MEDS ORDERED: ALBUMIN 25% 100 ML IV ONE (09:00)
[2019-09-21] MEDS ORDERED: VASOPRESSIN 20 UNIT/ML ONE ×2 (09:00→09:02)
[2019-09-21] MEDS ORDERED: VASOPRESSIN 50 UNITS in D5W 5% 247.5 ML IV SCH (09:00)
[2019-09-21] MEDS ORDERED: ALBUMIN 25% 200 ML IV ONE (09:01)
[2019-09-21] MEDS ORDERED: DexAMETHasone SOD PHOS 4 MG/1ML SDV INJ IV ONE (10:15)
[2019-09-21] MEDS: PANTOPRAZOLE 40 MG/10 ML VIAL INJ IV SCH (11:34)
[2019-09-21] MEDS: cefTRIAXone 1GM/50ML D5W 50 ML IV SCH (11:35)
[2019-09-21] MEDS: SODIUM CHLORIDE 0.9% 1,000 ML IV SCH ×2 (11:35→21:00)
[2019-09-21] MEDS ORDERED: fentaNYL Drip 2500mCg/250mlNS 250 ML IV SCH (11:52)
[2019-09-21] MEDS: LORazepam 2MG/ML-1ML VIAL IV PRN ×2 (14:11→16:49)
[2019-09-21] MEDS ORDERED: DEXTROSE 10% 1,000 ML IV ONE ×2 (19:15)
[2019-09-21] MEDS ORDERED: DexAMETHasone SOD PHOS 4 MG/1ML SDV INJ IV SCH (22:00)
[2019-09-22] MEDS ORDERED: ACCU-CHEK COMFORT CURVE STRIP VI SCH (20:00)
== END 2019-09-22 03:15 | disposition expired | DRG 720 ==
LOC: EDBD 19:15 → ER 19:15 → TELE 19:16 → TELE-WESTW 09-15 04:36 → ICU WEST 09-21 08:03
PROVIDERS: ADMIT Nurse Practitioner; ATTEND Internal Medicine
PROC: 06H03DZ Insertion of Intraluminal Device into Inferior Vena Cava, Percutaneous Approach (ICD-10-PCS; principal; 2019-09-17)
PROC: B5191ZZ Fluoroscopy of Inferior Vena Cava using Low Osmolar Contrast (ICD-10-PCS; 2019-09-17)
PROC: 5A1935Z Respiratory Ventilation, Less than 24 Consecutive Hours (ICD-10-PCS; 2019-09-21)
PROC: 0BH17EZ Insertion of Endotracheal Airway into Trachea, Via Natural or Artificial Opening (ICD-10-PCS; 2019-09-21)
DX: A41.9 Sepsis, unspecified organism (principal); I21.A1 Myocardial infarction type 2; I26.99 Other pulmonary embolism without acute cor pulmonale; E43 Unspecified severe protein-calorie malnutrition; E11.00 Type 2 diabetes mellitus with hyperosmolarity without nonketotic hyperglycemic-hyperosmolar coma (NKHHC); G93.1 Anoxic brain damage, not elsewhere classified; J96.00 Acute respiratory failure, unspecified whether with hypoxia or hypercapnia; C90.00 Multiple myeloma not having achieved remission; N17.0 Acute kidney failure with tubular necrosis; R57.9 Shock, unspecified; G93.41 Metabolic encephalopathy; I82.403 Acute embolism and thrombosis of unspecified deep veins of lower extremity, bilateral; E87.0 Hyperosmolality and hypernatremia; D69.6 Thrombocytopenia, unspecified; E11.65 Type 2 diabetes mellitus with hyperglycemia; G82.20 Paraplegia, unspecified; N39.0 Urinary tract infection, site not specified; E86.0 Dehydration; R32 Unspecified urinary incontinence; D63.8 Anemia in other chronic diseases classified elsewhere; E04.2 Nontoxic multinodular goiter; E78.5 Hyperlipidemia, unspecified; E78.00 Pure hypercholesterolemia, unspecified; E27.8 Other specified disorders of adrenal gland; G95.20 Unspecified cord compression; I10 Essential (primary) hypertension; I48.91 Unspecified atrial fibrillation; I70.8 Atherosclerosis of other arteries; J98.11 Atelectasis; K42.9 Umbilical hernia without obstruction or gangrene; K43.9 Ventral hernia without obstruction or gangrene; B95.2 Enterococcus as the cause of diseases classified elsewhere; K82.8 Other specified diseases of gallbladder; M48.02 Spinal stenosis, cervical region; B95.62 Methicillin resistant Staphylococcus aureus infection as the cause of diseases classified elsewhere; M48.56XA Collapsed vertebra, not elsewhere classified, lumbar region, initial encounter for fracture; Z66 Do not resuscitate; Z79.4 Long term (current) use of insulin; Z82.49 Family history of ischemic heart disease and other diseases of the circulatory system; Z79.01 Long term (current) use of anticoagulants; Z79.899 Other long term (current) drug therapy; Z68.26 Body mass index [BMI] 26.0-26.9, adult; R65.21 Severe sepsis with septic shock
CPT/HCPCS: 36415; 36600; 37191; 70450; 71045; 71275; 72125; 74176; 75825; 80048; 80053; 81001; 82010; 82533; 82805; 82947; 82962; 83036; 83605; 83735; 83880; 84443; 84484; 85007; 85025; 85027; 85379; 85610; 85730; 87040; 87070; 87077; 87081; 87086; 87186; 87205; 92610; 93970; 94002; 96361; 96365; 96375; 97110; 97530; 99152; A4565; C9113; G0378; J0330; J0696; J1100; J1815; J2250; J3490; J7060; P9047